=== PATIENT | female | born 1965 | race Caucasian/White ===

== ENCOUNTER 2024-10-11 16:05 | Outpatient (REF) | payer OTHER, SELFPAY ==
--- NOTE | ~2024-10-11 | US_ITS ---
EXAMINATION: US THYROID CLINICAL INFORMATION: Hyperthyroidism. COMPARISON: None available. TECHNIQUE: Linear transducer grayscale and color Doppler examination with attention to the region of the thyroid. FINDINGS: SIZE: Measurements of the thyroid lobes and nodules are given in sagittal, anteroposterior and transverse dimensions respectively. Right Thyroid Lobe: 4.4 x 1.6 x 1.8 cm, volume 6.3 mL. Parenchyma: The gland echotexture is homogeneous. Thyroid vascularity is normal. Left Thyroid Lobe: 4.1 x 1.5 x 1.5 cm, volume 4.7 mL. Parenchyma: The gland echotexture is homogeneous. Thyroid vascularity is normal. Isthmus: 0.5 cm in maximum AP dimension. Estimated total number of nodules greater than or equal to 1 cm: 0. Composite Technician nodules are described as follows: 1. Location: Right upper pole. Size: 0.5 x 0.4 x 0.5 cm, volume 0.05 mL. Nodule characteristics: Composition: Mixed cystic and solid (1). Echogenicity: Isoechoic (1). Shape: Not taller than wide (0). Margins: Smooth (0). Echogenic Foci: None (0). ACR TI-RADS total points: 2 ACR TI-RADS category: 2 2. Location: Right mid pole. Size: 0.5 x 0.4 x 0.4 cm, volume 0.04 mL. Nodule characteristics: Composition: Spongiform (0). ACR TI-RADS total points: 0 ACR TI-RADS category: 1 3. Location: Right lower pole. Size: 0.5 x 0.5 x 0.5 cm, volume 0.08 mL. Nodule characteristics: Composition: Spongiform (0). ACR TI-RADS total points: 0 ACR TI-RADS category: 1 4. Location: Left upper pole. Size: 0.6 x 0.3 x 0.3 cm, volume 0.03 mL. Nodule characteristics: Composition: Mixed cystic and solid (1). Echogenicity: Isoechoic (1). Shape: Not taller than wide (0). Margins: Ill-defined (0). Echogenic Foci: None (0). ACR TI-RADS total points: 2 ACR TI-RADS category: 2 NODES: No lymphadenopathy is seen in the tissue surrounding the thyroid gland. US/US thyroid IMPRESSION: 1. There are 4 subcentimeter thyroid nodules present, most significant are both TR category 2 and do not require follow-up due to size. 2. The thyroid gland is otherwise normal. ACR TI-RADS RECOMMENDATION REFERENCE: Ultrasound-guided fine-needle aspiration, followup ultrasound, no further follow up. * TR1 (0 point) and TR2 (2 points): No FNA or follow up. * TR3 (3 points): FNA if more than or equal to 2.5 cm in maximum dimension, followup ultrasound in 1, 3 and 5 years if 1.5 to 2.4 cm in maximum dimension. * TR4 (4-6 points): FNA if more than or equal to 1.5 cm in maximum dimension, followup ultrasound in 1, 2, 3 and 5 years if 1 to 1.4 cm in maximum dimension. * TR5 (more than or equal to 7 points): FNA if more than or equal to 1 cm in maximum dimension, followup ultrasound every year for 5 years if 0.5 to 0.9 cm in maximum dimension. * TR3, TR4 or TR5 nodules that are below the size threshold for followup receive no follow up. Electronically signed by: Michael Nazario MD 10/12/2024 08:23 AM EDT
== END 2024-10-11 16:06 | disposition home or self-care (01) ==
LOC: HO.US 16:05
PROVIDERS: PCP Nurse Practitioner; Visit Provider Nurse Practitioner
DX: E05.90 Thyrotoxicosis, unspecified without thyrotoxic crisis or storm (principal)
CPT/HCPCS: 76536

== ENCOUNTER → 2024-10-11 16:11 | Outpatient (BNV) | payer OTHER, SELFPAY | PROVIDERS: PCP Nurse Practitioner; Visit Provider Radiology Diagnostic Radiology | DX: E04.2 Nontoxic multinodular goiter (principal) | CPT/HCPCS: 76536 ==

== ENCOUNTER 2024-11-01 12:17 | Outpatient (AMB) | payer OTHER, SELFPAY ==
[2024-11-01 12:41] VITALS: BP 118/52; PULSE 93; O2SAT 99; BMI 59.8
--- NOTE | 2024-11-01 12:41 | A.OFFVIS_ITS ---
Vital Signs 3 11/01/24 12:41 Height 5 ft 1 in Weight 316 lb 9.341 oz BMI 59.8 BP 118/52 L Blood Pressure Location Lt brachial Position Sitting Pulse 93 Pulse Source Pulse Oximeter Pulse Oximetry (%) 99 Oxygen Delivery Method Room Air Intake Visit Reasons: Hyperthyroid/Tachycardia Intake Note: New patient present today for Hyperthyroid and Tachycardia. Bead Cutter Required: No Accompanied by: Self / Same As Patient Allergies No Known Allergies Allergy (Verified 11/01/24 12:47) Medication List - Last Reconciled 11/01/24 by Anne Proctor MD adalimumab (Humira(CF) Pen) 40 mg subcut QWEEK albuterol sulfate 90 mcg/actuation 2 puffs inhalation Q4H PRN evolocumab (Repatha Syringe) mg subcut hydroxyzine HCl 10 - 20 mg PO DAILY PRN tirzepatide (weight loss) (Zepbound) 5 mg subcut QWEEK HPI Comments Details: 59-year-old female here today for initial evaluation of subclinical hyperthyroidism. Labs from July 2023 showed normal TSH of 0.42, normal total T4 of 7.8. Patient has a history of atrial fibrillation, apparently continues to have palpitations after ablation and which is why she had concerns about her thyroid function. Per patient she did have labs at [facility] done August 2024 which showed low TSH 0.339. I saw these results on patient's portal. US thyroid September 2024 I reviewed the images myself which showed small subcentimeter nodules. Fup not needed. Patient currently denies heat or cold intolerance, , hair loss, anxiety, mood changes, changes in appearance of eyes or vision changes, tremors, increased diaphoresis or dry skin. ?Has some constipation since starting Zepbound. has lost 44 lbs due to intentional weight loss management. some anxiety not too bothersome. low energy. reports some intermittent infrequent tremors. 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 Patient denies any difficulty swallowing, pain on swallowing or voice changes or difficulty breathing. Patient denies any history of childhood neck radiation. Denies having ever used lithium, or biotin supplements. Was on amiodarone many years ago briefly. Patient denies any family history of thyroid cancer. Maternal grandmother had goiter. no CAD no fractures. No preceding viral illness No contrast exposure Physical exam General: sitting comfortably in no acute distress HEENT: normocephalic/atraumatic, EOM intact, moist oral mucosa Neck: supple, symmetrical, no thyromegaly , Cardiac: normal heart sounds Pulm: normal breath sounds B/L, no added breath sounds Abd: not distended, no tenderness Extremities: no edema, no signs of myxedema, very mild tremor Neuro: AAO x3, Speech: normal, no facial droop, moving all 4 extremities 09/02/24 [facility] portal reviewed on patients phone tsh 0.393 total t4 normal 7 TPO 9 US THYROID 10/11/24 CLINICAL INFORMATION: Hyperthyroidism. COMPARISON: None available. TECHNIQUE: Linear transducer grayscale and color Doppler examination with attention to the region of the thyroid. FINDINGS: SIZE: Measurements of the thyroid lobes and nodules are given in sagittal, anteroposterior and transverse dimensions respectively. Right Thyroid Lobe: 4.4 x 1.6 x 1.8 cm, volume 6.3 mL. Parenchyma: The gland echotexture is homogeneous. Thyroid vascularity is normal. Left Thyroid Lobe: 4.1 x 1.5 x 1.5 cm, volume 4.7 mL. Parenchyma: The gland echotexture is homogeneous. Thyroid vascularity is normal. Isthmus: 0.5 cm in maximum AP dimension. Estimated total number of nodules greater than or equal to 1 cm: 0. 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 Location: Right upper pole. Size: 0.5 x 0.4 x 0.5 cm, volume 0.05 mL. Nodule characteristics: Composition: Mixed cystic and solid (1). Echogenicity: Isoechoic (1). Shape: Not taller than wide (0). Margins: Smooth (0). Echogenic Foci: None (0). ACR TI-RADS total points: 2 ACR TI-RADS category: 2 2. Location: Right mid pole. Size: 0.5 x 0.4 x 0.4 cm, volume 0.04 mL. Nodule characteristics: Composition: Spongiform (0). ACR TI-RADS total points: 0 ACR TI-RADS category: 1 3. Location: Right lower pole. Size: 0.5 x 0.5 x 0.5 cm, volume 0.08 mL. Nodule characteristics: Composition: Spongiform (0). ACR TI-RADS total points: 0 ACR TI-RADS category: 1 4. Location: Left upper pole. Size: 0.6 x 0.3 x 0.3 cm, volume 0.03 mL. Nodule characteristics: Composition: Mixed cystic and solid (1). Echogenicity: Isoechoic (1). Shape: Not taller than wide (0). Margins: Ill-defined (0). Echogenic Foci: None (0). ACR TI-RADS total points: 2 ACR TI-RADS category: 2 NODES: No lymphadenopathy is seen in the tissue surrounding the thyroid gland. US/US thyroid IMPRESSION: 1. There are 4 subcentimeter thyroid nodules present, most significant are both TR category 2 and do not require follow-up due to size. 2. The thyroid gland is otherwise normal. [facility] Medical History (Updated 11/01/24 @ 13:10 by Anen Proctor MD) Osteoarthritis Rheumatoid arthritis Subclinical hyperthyroidism FH: cholecystectomy Surgical History (Updated 11/01/24 @ 12:52 by NORMAN Patel) History of bladder surgery History of cardiac ablation for atrial fibrillation Family History (Updated 11/01/24 @ 12:53 by NORMAN Patel) Mother No problems noted. Father High cholesterol Hypertension Kidney disease Pre-diabetes Social History Alcohol intake: current Alcohol intake frequency: holidays/special occasions only Patient Tobacco Use Status: Never used Tobacco Assessment & Plan Assessment & Plan (1) Subclinical hyperthyroidism: Code(s): E05.90 - Thyrotoxicosis, unspecified without thyrotoxic crisis or storm Category: Medical Plan: 59-year-old female with a history of subclinical hyperthyroidism. Per patient she has had borderline low TSH for many years. [facility], reviewed on [facility]'s portal from August 2024 showed low TSH of 0.339, normal total T4. No free T4 done. She does have some symptoms of tremors, some intermittent palpitations, however heart rate is normal on exam. I do not think her symptoms are really related to her thyroid. Indications for treatment reviewed with the patient when which include age greater than 65 years old, she does not have any history of CAD, no known osteoporosis or history of fractures. And her TSH is greater than 0.1. At this time she does not meet treatment criteria. We will have her repeat thyroid function now. I will see her back in 8 months with a repeat set of labs. We reviewed signs and symptoms of hyperthyroidism and to reach out sooner if those happen. We also reviewed ultrasound of the thyroid from September 2024 which showed small subcentimeter nodules that do not meet criteria for follow up. Plan: -ordered TSH, free T4, total T3, we will reach out with the results -follow up in 8 months with a repeat blood work Plan See above Orders: Orders 2 Free T4 (Free Thyroxine) Today E05.90 - Thyrotoxicosis, unspecified without thyrotoxic crisis or storm Thyroid Stimulating Hormone Today E05.90 - Thyrotoxicosis, unspecified without thyrotoxic crisis or storm Triiodothyronine T3 Total Today E05.90 - Thyrotoxicosis, unspecified without thyrotoxic crisis or storm Patient Instructions: do blood work we will reach out with results Follow up in 8 months with another set of blood work Coding Level of Care Code New Pt Level 4 (26948) Diagnoses Subclinical hyperthyroidism E05.90
== END 2024-11-01 13:13 | disposition home or self-care (01) ==
LOC: HO.ENCR 12:18
PROVIDERS: PCP Nurse Practitioner; Visit Provider Student in an Organized Health Care Education/Training Program
DX: E05.90 Thyrotoxicosis, unspecified without thyrotoxic crisis or storm (principal)
CPT/HCPCS: 99204

== ENCOUNTER 2024-11-01 12:17 | Outpatient (REF) | payer OTHER, SELFPAY ==
[2024-11-01 15:17] LABS: Free T4 (Free Thyroxine) 0.93 ng/dL (0.71-1.85); Thyroid Stimulating Hormone 0.46 uIU/mL (0.32-4.0)
== END 2024-11-01 12:18 | disposition home or self-care (01) ==
LOC: HO.LAB 12:17
PROVIDERS: PCP Nurse Practitioner; Visit Provider Student in an Organized Health Care Education/Training Program
DX: E05.90 Thyrotoxicosis, unspecified without thyrotoxic crisis or storm (principal)
CPT/HCPCS: 36415; 84439; 84443; 84480